=== PATIENT | female | born 2000 | race Caucasian/White ===

== ENCOUNTER 2021-09-05 17:18 | Emergency (ER) | payer OTHER ==
[2021-09-05 18:15] LABS: BILIRUBIN NEGATIVE (NEGATIVE); BLOOD NEGATIVE Ery/uL (NEGATIVE); CLARITY CLEAR (CLEAR); COLOR YELLOW (YELLOW); GLUCOSE (U) NORMAL (NORMAL); LEUKOCYTES NEGATIVE Leu/uL (NEGATIVE); NITRITE NEGATIVE (NEGATIVE); PROTEIN NEGATIVE (NEGATIVE); SPECIFIC GRAVITY 1.025 (1.001-1.030); UROBILINOGEN 0.2 mg/dL (0.2-1.0)
[2021-09-05 18:28] LABS: BASOPHIL 0.3 % (0-2); EOSINOPHIL 0.5 % (0-5); HGB 12.4 g/dl (12.5-16.0); LYMPHOCYTE 11.3 % (15-48); MCHC 33.5 g/dL (32.0-36.0); MCV 92.5 fL (78.0-100.0); MONOCYTE 4.5 % (0-12); MPV 10.5 fL (6.0-9.5); NEUTROPHIL 83.2 % (41-80); NRBC 0; PLT 218 K/uL (150-400); RDW 11.9 % (11.5-14.0); WBC 9.8 K/uL (4.0-10.5)
[2021-09-05 18:54] LABS: CREATININE 0.56 mg/dL (0.51-0.95); POTASSIUM 3.3 mmol/L (3.5-5.1)
== END 2021-09-05 20:53 | disposition home or self-care (01) ==
LOC: FER 17:18
PROVIDERS: Nurse Practitioner Family
DX: N83.00 Follicular cyst of ovary, unspecified side (principal); Z88.6 Allergy status to analgesic agent
CPT/HCPCS: 36415; 80048; 81003; 85025; J7030; Q9967